=== PATIENT | male | born 1995 | race Caucasian/White ===

== ENCOUNTER 2017-09-24 04:53 | Emergency (ER) | payer BC, OTHER ==
[2017-09-24 04:59] VITALS: BP 135/83; PULSE 95; TEMP 98.2; BMI 17.9
--- NOTE | 2017-09-24 06:07 | PDOC ---
History of Present Illness - General Chief Complaint: Injury Stated Complaint: FALL Time Seen by Provider: 09/24/17 06:05 History Source: Patient Exam Limitations: No Limitations - History of Present Illness Initial Comments: 09/24/17 06:12 This is a 21-year-old male who comes in complaining of being intoxicated tripped and fell hitting her forehead. Patient did not pass out. Patient denies any headache, blurry vision, nausea. Patient denies any neck pain or any other injuries. PAST MEDICAL HISTORY: no significant history PAST SURGICAL HISTORY: no significant history FAMILY HISTORY: no pertinant history SOCIAL HISTORY: Pt lives with family and is employed. MEDICATIONS: reviewed ALLERGIES: As per nursing notes Review of Systems General: No fevers or chills, no weakness, no weight loss HEENT: No change in vision. No sore throat,. No ear pain, for a laceration as per history of present illness CardioVascular: No chest pain or shortness of breath Respiratory:No cough, or wheezing. Gastrointestinal: no nausea, vomitting, diarrhea or constipation, No rectal bleeding Genitourinary: No dysuria, hematuria, or frequency Musculoskeletal: No joint or muscle pain or swelling Neurologic: No headache, vertigo, dizziness or loss of consciousness Psychiatric: nor depression Skin: No rashes or easy bruising Endocrine: no increased thirst or abnormal weight change Allergic: no skin or latex allergy All other systems reviewed and normal GENERAL: The patient is awake, alert, and fully oriented, in no acute distress. HEAD: There is a small superficial laceration approximately 1 cm in length over the left forehead area. There is no associated bony tenderness. Cervical spine there is no tenderness on palpation of the cervical spine there is full range of motion of the neck without any complaints. EYES: Pupils equal, round and reactive to light, extraocular movements intact, sclera anicteric, conjunctiva clear. EXTREMITIES: Normal range of motion, no edema. There is a small abrasion over the left knee however there is no underlying bony tenderness. NEUROLOGICAL: Normal speech, normal gait. grossly intact PSYCH: Normal mood, normal affect. SKIN: Warm, Dry, normal turgor, no rashes or lesions noted. Procedure note laceration repair Dermabond Laceration was cleaned with some peroxide and closed with Dermabond patient tolerated well Assessment and plan: This is a 21-year-old male with a superficial laceration of his forehead that was cleaned and closed with Dermabond. Patient otherwise has no evidence of a concussion at this time patient has no other injuries. Patient's parents will be with him for the next 24 hours. Father was given head injury instructions. Past History - Past Medical History Allergies/Adverse Reactions: Allergies Allergy/AdvReac Type Severity Reaction Status Date / Time No Known Allergies Allergy Unverified 07/09/12 11:30 Home Medications: Ambulatory Orders Venlafaxine HCl ER [Effexor Xr -] 220 mg PO DAILY 09/24/17 Anemia: No Asthma: No Cancer: No Cardiac Disorders: No CVA: No COPD: No CHF: No DVT: No Dementia: No Diabetes: No Dialysis: No GI Disorders: No Disorders: No HTN: No Hypercholesterolemia: No Kidney Stones: No Liver Disease: No Psychiatric Problems: Yes (ANXIETY/DEPRESSION) Seizures: No Thyroid Disease: No Lung CA: No - Immunization History Immunization Up to Date: Yes - Suicide/Smoking/Psychosocial Hx Smoking Status: No Smoking History: Never smoked Number of Cigarettes Smoked Daily: 0 *Physical Exam - Vital Signs Last Vital Signs Temp Pulse Resp BP Pulse Ox 98.2 F 95 H 14 135/83 98 09/24/17 04:56 09/24/17 04:56 09/24/17 04:56 09/24/17 04:56 09/24/17 04:56 *DC/Admit/Observation/Transfer Diagnosis at time of Disposition: Abrasion, left knee, initial encounter Forehead laceration Qualifiers: Encounter type: initial encounter Qualified Code(s): S01.81XA - Laceration without foreign body of other part of head, initial encounter - Discharge Dispostion Disposition: HOME Condition at time of disposition: Stable - Referrals Referrals: Florence Canela MD [Primary Care Provider] - - Patient Instructions Printed Discharge Instructions: DI for Closed Head Injury, DI for Laceration Repair With Dermabond Additional Instructions: Read over and follow the Dermabond instruction the pearce points are to not get it wet for 72 hours and do not use any petroleum based products on it such as lotions creams or ointments or antibiotic ointment.. Someone should check on you once tonight during the night. You should be arousable to your Normal level of arousability for that time of the night. If you have been vomiting, have had a seizure, or you are unable to be aroused or the person checking on you is concerned that there has been a change in your mental status they should call 911 and have you brought back to the emergency department. You can take Tylenol as needed for pain. Return to the emergency department immediately with ANY new, persistent or worsening symptoms. Continue any medications as previously prescribed by your physician. You should follow up with your primary doctor as soon as possible regarding today's emergency department visit. . Please make sure your doctor reviews the results of your emergency evaluation. Thank you for coming to the Emergency Department today for your care. It was a pleasure to see you today. Please note that your evaluation is INCOMPLETE until you follow-up with your doctor. - Post Discharge Activity
== END 2017-09-24 06:21 | disposition home or self-care (01) ==
LOC: FER 04:53
PROC: 0HQ1XZZ Repair Face Skin, External Approach (ICD-10-PCS; principal; 2017-09-24)
DX: S01.81XA Laceration without foreign body of other part of head, initial encounter (principal); F41.8 Other specified anxiety disorders; X58.XXXA Exposure to other specified factors, initial encounter; Y93.89 Activity, other specified; Y92.9 Unspecified place or not applicable
CPT/HCPCS: 99281-25

== ENCOUNTER 2019-01-30 17:20 | Emergency (ER) | payer OTHER ==
[2019-01-30 17:42] VITALS: TEMP 98.5; BMI 17.4
--- NOTE | 2019-01-30 17:47 | PDOC ---
Attending Attestation - Resident Resident Name: Greyson Lopez - ED Attending Attestation I have performed the following: I have examined & evaluated the patient, The case was reviewed & discussed with the resident, I agree w/resident's findings & plan, Exceptions are as noted - HPI HPI: 01/30/19 18:57 23yo male with a syncopal episode today while at the dentist. Pt states he was in the dental chair having a cleaning when he started to feel sweaty, sob, lightheaded. He got up to use the restroom and passed out poss hitting his head against the toilet. Mother at the bedside states he did hit his head. Pt states he passed out also in June while in school. denies cp. Denies palpitations. Denies abd pain. No n/v/d. Pt arrives via ambulance but is aaox3, nad. Pt has ambulated in the ED. Pt recently flew back from [place] and may only have gotten up once on the plane. Denies leg cramping/swelling. - Physicial Exam PE: 01/30/19 19:03 Gen: aaox3, nad, no external signs of trauma to the head heent: perrl, eomi, mmm neck: no midline ttp heart: +s1s2 reg lungs: cta b/l abd: soft, nt/nd +bs ext: no c/c/e neuro: cn ii-xii grossly intact, no focal deficits, sensory and muscle strength intact - Medical Decision Making 01/30/19 17:46 I, Dr. Lynne Barroso, DO, attest that this document has been prepared under my direction and personally reviewed by me in its entirety. I further attest, that it accurately reflects all work, treatment, procedures and medical decision -making performed by me. 01/30/19 19:04 a/p: 23yo male with a syncopal episode while at the dentist today -recent travel - will send dimer, however PERC neg -will send labs, ekg, cxr, head ct -will hydrate with ivf hydraiton -orthostatics -will monitor and reassess Heart Score/ECG Review - ECG Intrepretation Comment:: 01/30/19 17:46 sinus at 91, nl axis, nl interval, t wave inversions III which are nonspecific, no acute st changes
--- NOTE | 2019-01-30 18:12 | PDOC ---
History of Present Illness - General Chief Complaint: Syncope/Near Syncope Stated Complaint: FAINTED Time Seen by Provider: 01/30/19 17:37 History Source: Patient Exam Limitations: No Limitations - History of Present Illness Initial Comments: 01/30/19 18:03 23M with a PMH of anxiety and depression (on venlafaxine) presents after having a syncopal episode. The patient is with his mother who was present when the patient syncopized. The patient states that he was getting his teeth cleaned at the dentist. As he was laying in the chair, he began to feel lightheaded. He states that he also felt like he was getting short of breath due to the water being squirted in his mouth and up his nose. He admits to having a similar episode to this in the past but did not pass out. He states that he was at school and felt lightheaded, went outside, drank water, and felt better 10 minutes later. He went to an urgent care which recommended that he follow up at an ER and he didn't. He currently states that he feels much better. The patient admits to a flight from [place] 2 weeks ago. He denies CP, SOB, hx of DVT/PE , hx of cancer, smoking, and LE swelling. Past History - Past Medical History Allergies/Adverse Reactions: Allergies Allergy/AdvReac Type Severity Reaction Status Date / Time No Known Allergies Allergy Unverified 07/09/12 11:30 Home Medications: Ambulatory Orders Venlafaxine HCl ER [Effexor Xr -] 220 mg PO DAILY 09/24/17 Anemia: No Asthma: No Cancer: No Cardiac Disorders: No CVA: No COPD: No CHF: No DVT: No Dementia: No Diabetes: No Dialysis: No GI Disorders: No Disorders: No HTN: No Hypercholesterolemia: No Kidney Stones: No Liver Disease: No Psychiatric Problems: Yes (ANXIETY/DEPRESSION) Seizures: No Thyroid Disease: No Lung CA: No - Immunization History Immunization Up to Date: Yes - Suicide/Smoking/Psychosocial Hx Smoking Status: No Smoking History: Never smoked Number of Cigarettes Smoked Daily: 0 Hx Alcohol Use: Yes (WEEKENDS) Drug/Substance Use Hx: No Review of Systems - Review of Systems Able to Perform ROS?: Yes Comments:: 01/30/19 18:20 GENERAL/CONSTITUTIONAL: No fever or chills. No weakness. HEAD, EYES, EARS, NOSE AND THROAT: No change in vision. No ear pain or discharge. No sore throat. CARDIOVASCULAR: No chest pain, palpitations, or lightheadedness. RESPIRATORY: + for resolved SOB. No cough, wheezing, or hemoptysis. GASTROINTESTINAL: No nausea, vomiting, diarrhea, constipation, or abdominal pain. GENITOURINARY: No dysuria, frequency, hematuria, or change in urination. MUSCULOSKELETAL: No joint or muscle swelling or pain. No neck or back pain. SKIN: No rash or lesions. NEUROLOGIC: + for syncope. No headache, numbness, tingling, focal weakness, loss of consciousness, or change in strength/sensation. Is the patient limited [place]an proficient: No *Physical Exam - Vital Signs Last Vital Signs Temp Pulse Resp BP Pulse Ox 98.5 F 84 16 119/87 100 01/30/19 17:35 01/30/19 17:35 01/30/19 17:35 01/30/19 17:35 01/30/19 17:35 - Physical Exam Comments: 01/30/19 18:24 GENERAL: Well developed, well nourished. Awake and alert. No acute distress. HEENT: Normocephalic, atraumatic. Hearing grossly normal. Moist mucous membranes. PERRLA, EOMI. No conjunctival pallor. Sclera are non-icteric. NECK: Supple. Full ROM. No JVD. CARDIOVASCULAR: Regular rate and rhythm. No murmurs, rubs, or gallops. PULMONARY: No evidence of respiratory distress. Lungs clear to auscultation bilaterally. No wheezing, rales or rhonchi. ABDOMINAL: Soft. Non-tender. Non-distended. No rebound or guarding. GENITOURINARY: No CVA tenderness bilaterally. MUSCULOSKELETAL: Normal range of motion at all joints. No bony deformities or tenderness. EXTREMITIES: No cyanosis. No clubbing. No edema. No calf tenderness or swelling. SKIN: Warm and dry. Normal capillary refill. No rashes. No jaundice. NEUROLOGICAL: Alert, awake, appropriate. Cranial nerves 2-12 grossly intact. 5/ 5 strength in deltoids, biceps, triceps, quadriceps, hamstrings, and gastrocnemius. Normal speech. Gait is normal without ataxia. PSYCHIATRIC: Cooperative. Good eye contact. Appropriate mood and affect. ED Treatment Course - LABORATORY CBC & Chemistry Diagram: 01/30/19 18:05 01/30/19 18:05 - RADIOLOGY Radiology Studies Ordered: Category Date Time Status CHEST PA & LAT [RAD] Stat Radiology 01/30/19 17:37 Ordered Medical Decision Making - Medical Decision Making 01/30/19 18:25 23M with PMH of anxiety and depression who presents to the ED after having a syncopal episode. PERC negative. EKG unremarkable. Due to low risk for PE, will send dimer. Pending labs and imaging. Pt comfortable appearing w/o SI or HI. Pt has also had this without a workup in the past. 01/30/19 19:00 Pt signed out to Dr. Linton for further evaluation. *DC/Admit/Observation/Transfer - Discharge Dispostion Condition at time of disposition: Good - Referrals - Patient Instructions - Post Discharge Activity
[2019-01-30 18:25] LABS: BASO % 0.5 % (0-2.0); EOS % 3.6 % (0-4.5); HEMATOCRIT 46.1 % (35.4-49); HEMOGLOBIN 15.2 GM/dl (11.7-16.9); LYMPH % 26.6 % (8-40); MCH 29.9 pg (25.7-33.7); MEAN CELL VOLUME 90.4 fl (80-96); MEAN PLT VOLUME 8.2 fl (7.5-11.1); MONO % 14.1 % (3.8-10.2); NEUT % 55.2 % (42.8-82.8); PLATELET COUNT 253 K/MM3 (134-434); RDW 11.7 % (11.9-15.9); WHITE BLOOD COUNT 7.8 K/mm3 (4.0-10.8)
[2019-01-30 18:38] LABS: ALBUMIN 4.2 g/dl (3.4-5.0); ALK PHOS 76 U/L (45-117); ANION GAP 14 MMOL/L (8-16); BILIRUBIN,TOTAL 0.5 mg/dl (0.2-1); BLOOD UREA NITROGEN 14 mg/dl (7-18); CALCIUM 9.4 mg/dl (8.5-10); CHLORIDE 96 mmol/L (98-107); CO2 27 mmol/L (21-32); CREATININE 0.9 mg/dl (0.55-1.3); GLUCOSE,RANDOM 95 mg/dl (74-106); POTASSIUM 4.3 mmol/L (3.5-5.1); SGOT/AST 25 U/L (15-37); SGPT/ALT 36 U/L (13-61); SODIUM 137 mmol/L (136-145); TOT PROT 7.4 g/dl (6.4-8.2)
[2019-01-30] MEDS ORDERED: SODIUM CHLORIDE 0.9% 1000 ML INFUS.BAG IV ONE (19:06)
--- NOTE | 2019-01-30 19:42 | PDOC ---
*Physical Exam - Vital Signs Last Vital Signs Temp Pulse Resp BP Pulse Ox 98.5 F 110 H 16 122/78 100 01/30/19 17:35 01/30/19 18:16 01/30/19 17:35 01/30/19 18:16 01/30/19 17:35 ED Treatment Course - LABORATORY CBC & Chemistry Diagram: 01/30/19 18:05 01/30/19 18:05 - ADDITIONAL ORDERS Additional order review: Laboratory Results 01/30/19 01/30/19 01/30/19 18:05 18:05 18:05 Sodium 137 Potassium 4.3 Chloride 96 L Carbon Dioxide 27 Anion Gap 14 BUN 14 Creatinine 0.9 Creat Clearance w eGFR 105.52 Random Glucose 95 Calcium 9.4 Total Bilirubin 0.5 AST 25 ALT 36 Alkaline Phosphatase 76 Creatine Kinase 86 Cancelled Troponin I < 0.03 Cancelled Total Protein 7.4 Albumin 4.2 01/30/19 18:05 RBC 5.10 MCV 90.4 MCHC 33.0 RDW 11.7 L MPV 8.2 Neutrophils % 55.2 Lymphocytes % 26.6 Monocytes % 14.1 H Eosinophils % 3.6 Basophils % 0.5 - Medications Given in the ED: ED Medications Discontinued Medications Generic Name Dose Route Start Last Admin Trade Name Freq PRN Reason Stop Dose Admin Sodium Chloride 1,000 ml 01/30/19 19:06 01/30/19 19:00 Normal Saline - IV 01/30/19 19:07 1,000 ml ONCE ONE Administration *DC/Admit/Observation/Transfer Diagnosis at time of Disposition: Vasovagal syncope - Discharge Dispostion Disposition: HOME Condition at time of disposition: Stable - Referrals Referrals: Piotr Osorio [Non Staff, Medical] - - Patient Instructions Printed Discharge Instructions: DI for Syncope in Adults (Fainting) Additional Instructions: be sure to keep yourself hydrated throughout the day eat regular meals return to ER if you have severe lightheadedness/chest pain/palpitations followup with general medical doctor within 1 week - Post Discharge Activity
[2019-01-30 19:54] VITALS: BP 123/89; PULSE 84
--- NOTE | 2019-01-31 11:40 | EKG ---
Test Reason : Blood Pressure : / mmHG Vent. Rate : 091 BPM Atrial Rate : 091 BPM P-R Int : 164 ms QRS Dur : 106 ms QT Int : 350 ms P-R-T Axes : 054 048 007 degrees QTc Int : 430 ms NORMAL SINUS RHYTHM NONSPECIFIC ST ABNORMALITY ABNORMAL ECG NO PREVIOUS ECGS AVAILABLE Confirmed by Brayden Hannon MD ([id number]) on 01/31/2019 11:40:07 AM Referred By: Confirmed By:Brayden Hannon MD
== END 2019-01-30 21:21 | disposition home or self-care (01) ==
LOC: FER 17:20
PROC: 3E0337Z Introduction of Electrolytic and Water Balance Substance into Peripheral Vein, Percutaneous Approach (ICD-10-PCS; principal; 2019-01-30)
DX: R55 Syncope and collapse (principal); F41.9 Anxiety disorder, unspecified; F32.9 Major depressive disorder, single episode, unspecified
CPT/HCPCS: 36415; 70450-TC; 71046-TC-FY; 80053; 82550; 84484; 85025; 85379; 93005; 99284-25; J7030